=== PATIENT | male | born 1950 | race Caucasian/White ===

== ENCOUNTER 2021-11-01 09:40 | Day surgery (SDC) | payer BC, MEDICARE ==
[2021-11-01] MEDS ORDERED: Propofol 200 MG/20 ML SDV IV ONE (09:41)
[2021-11-01] MEDS ORDERED: Lactated Ringers 1,000 ML ONE (09:46)
[2021-11-01] MEDS ORDERED: Lactated Ringers 1,000 ML IV SCH (10:00)
[2021-11-01] MEDS ORDERED: Sodium Chloride 0.9% 10 ML Syringe FLUSH PRN (10:00)
[2021-11-01] MEDS ORDERED: Propofol 200 MG/20 ML SDV ONE ×2 (10:54→11:49)
[2021-11-01] MEDS ORDERED: Midazolam 1 MG/ML 2 ML SDV ONE (10:54)
[2021-11-01 12:59] VITALS: BP 135/61; PULSE 61
== END 2021-11-01 13:10 | disposition home or self-care (01) ==
LOC: KA.SDS 09:40
PROVIDERS: ATTEND Family Medicine
DX: Z12.11 Encounter for screening for malignant neoplasm of colon (principal); D12.0 Benign neoplasm of cecum; D12.2 Benign neoplasm of ascending colon; D12.3 Benign neoplasm of transverse colon; K57.30 Diverticulosis of large intestine without perforation or abscess without bleeding; E78.2 Mixed hyperlipidemia; F51.04 Psychophysiologic insomnia; E66.9 Obesity, unspecified; R73.01 Impaired fasting glucose; G89.29 Other chronic pain; M25.561 Pain in right knee; Z80.0 Family history of malignant neoplasm of digestive organs; Z68.31 Body mass index [BMI] 31.0-31.9, adult
CPT/HCPCS: 00812; J2250; J2704; J7120

== ENCOUNTER 2023-09-04 11:56 | Emergency (ER) | payer MEDICARE ==
[2023-09-04 13:17] VITALS: BP 111/70; PULSE 60
== END 2023-09-04 13:15 | disposition home or self-care (01) ==
LOC: KA.ED 11:56
DX: M19.011 Primary osteoarthritis, right shoulder (principal); G56.81 Other specified mononeuropathies of right upper limb; Z88.2 Allergy status to sulfonamides
CPT/HCPCS: 73030-RT; 99284

== ENCOUNTER 2024-07-02 07:53 | Day surgery (SDC) | payer MEDICARE ==
[2024-07-02] MEDS: Sodium Chloride 0.9% 10 ML Syringe FLUSH PRN (08:14)
[2024-07-02] MEDS: Lactated Ringers 1,000 ML IV SCH (08:16)
[2024-07-02] MEDS ORDERED: Propofol 200 MG/20 ML SDV ONE (08:36)
[2024-07-02] MEDS ORDERED: Midazolam 1 MG/ML 2 ML SDV ONE (08:36)
[2024-07-02 12:40] VITALS: BP 147/75; PULSE 65
== END 2024-07-02 10:42 | disposition home or self-care (01) ==
LOC: KA.SDS 07:53
PROVIDERS: ATTEND Family Medicine
DX: Z12.11 Encounter for screening for malignant neoplasm of colon (principal); Z85.038 Personal history of other malignant neoplasm of large intestine; K57.30 Diverticulosis of large intestine without perforation or abscess without bleeding; G20.A1 Parkinson's disease without dyskinesia, without mention of fluctuations; E78.2 Mixed hyperlipidemia; E66.9 Obesity, unspecified; Z80.0 Family history of malignant neoplasm of digestive organs; Z79.899 Other long term (current) drug therapy
CPT/HCPCS: 00812; 99100; J2250; J2704; J7120